=== PATIENT | female | born 1970 | race Caucasian/White ===

== ENCOUNTER 2018-12-15 14:49 | Emergency (ER) | payer BC ==
[2018-12-15] MEDS: IPRATROPIUM (NEB) 0.5 MG/2.5 ML AMP HHN (18:01)
[2018-12-15] MEDS: ALBUTEROL 0.083% (NEB) 2.5 MG/3 ML AMP HHN (18:01)
== END 2018-12-15 19:30 | disposition home or self-care (01) ==
LOC: FTE 14:49
DX: J20.9 Acute bronchitis, unspecified (principal); R40.2412 Glasgow coma scale score 13-15, at arrival to emergency department
CPT/HCPCS: 94664; 99283-25